=== PATIENT | male | born 2000 | race Two or more races ===

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

== ENCOUNTER 2020-04-29 14:22 | Emergency (ER) | payer MEDICAID, SELFPAY ==
[~2020-04-29] VITALS: Ht 172.7 cm; Wt 84.8 kg
[2020-04-29 14:23] VITALS: BP 116/69; Ht 172.7 cm; Wt 84.8 kg
== END 2020-04-29 17:16 | disposition home or self-care (01) ==
LOC: ED 14:22
DX: J45.909 Unspecified asthma, uncomplicated (principal); F17.210 Nicotine dependence, cigarettes, uncomplicated; Z71.6 Tobacco abuse counseling; Z20.828 Contact with and (suspected) exposure to other viral communicable diseases
CPT/HCPCS: 99406; U0003